=== PATIENT | male | born 1985 | race African-American/Black ===

== ENCOUNTER 2017-05-17 19:55 | Emergency (ER) | payer MEDICAID ==
[~2017-05-17] VITALS: Ht 175.3 cm; Wt 72.7 kg
[~2017-05-17 19:55] MED LIST: NOCURR
[2017-05-17] MEDS ORDERED: PERTUSS(ACELL),DIPH,TET VAC/PF 0.5 ML VIAL IM ONE (21:15)
[2017-05-17 21:18] VITALS: BP 118/77
== END 2017-05-17 21:21 | disposition home or self-care (01) ==
LOC: EMS 19:57
DX: S61.211A Laceration without foreign body of left index finger without damage to nail, initial encounter (principal); S01.81XA Laceration without foreign body of other part of head, initial encounter; F17.210 Nicotine dependence, cigarettes, uncomplicated; F12.90 Cannabis use, unspecified, uncomplicated; W45.8XXA Other foreign body or object entering through skin, initial encounter; Y93.89 Activity, other specified; Y92.89 Other specified places as the place of occurrence of the external cause; Y99.8 Other external cause status
CPT/HCPCS: 90471; 90715; 99283; 99406

== ENCOUNTER 2017-11-09 13:42 | Inpatient (IN) | payer MEDICAID ==
[~2017-11-09] VITALS: Ht 175.3 cm; Wt 70.7 kg
[2017-11-09] MEDS ORDERED: HALOPERIDOL 5 MG TABLET PO PRN (15:00)
[2017-11-09] MEDS ORDERED: ZOLPIDEM TARTRATE 10 MG TABLET PO PRN (15:00)
[2017-11-09] MEDS ORDERED: LORazepam 2 MG TABLET PO PRN (15:00)
[2017-11-09] MEDS ORDERED: LORazepam 2 MG/ML VIAL IM ONE (17:20)
[2017-11-09] MEDS ORDERED: HALOPERIDOL LACTATE 5 MG/ML VIAL IM ONE (17:20)
[2017-11-09] MEDS ORDERED: DiphenhydrAMINE HCL 50 MG/ML VIAL IM ONE (17:20)
[2017-11-09 19:22] LABS: BASOPHILS % (AUTO) 0.3 % (0.0-2.0); EOSINOPHILS % (AUTO) 0.1 % (1.0-6.0); HEMATOCRIT 39.3 % (41-53); HEMOGLOBIN 13.8 g/dL (13.5-17.5); LYMPHOCYTES # (AUTO) 1.4 K/uL (1.0-4.8); LYMPHOCYTES % (AUTO) 12.4 % (22.0-44.0); MEAN CORPUSCULAR HEMOGLOBIN 29.6 pg (26.0-34.0); MEAN CORPUSCULAR HGB CONC 35.1 G/dL (31.0-37.0); MEAN CORPUSCULAR VOLUME 84 fL (80-100); MONOCYTES # (AUTO) 0.8 K/uL (0.1-1.0); NEUTROPHILS % (AUTO) 80.2 % (40.0-70.0); PLATELET COUNT (AUTO) 397 K/uL (150-450); RED BLOOD CELL COUNT(AUTO) 4.67 MIL/uL (4.50-5.90); RED CELL DISTRIBUTION WIDTH 13.5 % (11.5-14.5)
[2017-11-09 19:31] LABS: ANION GAP 9 mmol/L (8-16); CALCIUM, TOTAL 9.3 mg/dL (8.8-10.5); CARBON DIOXIDE 26 mmol/L (22-29); CHLORIDE 106 mmol/L (98-107); CREATININE 1.64 mg/dL (0.60-1.30); GLOMERULAR FILTR. RATE CALC 58 mL/min (>60); GLUCOSE,RANDOM 84 mg/dL (70-110); POTASSIUM 4.2 mmol/L (3.5-5.1); SODIUM SERUM 141 mmol/L (136-145); UREA NITROGEN, BLOOD 25 mg/dL (7-18)
[2017-11-09 19:47] LABS: ALANINE AMINOTRANSFERASE 33 U/L (12-78); ALBUMIN 4.2 g/dL (3.4-5.0); ALKALINE PHOSPHATASE 120 U/L (46-116); ASPARTATE AMINOTRANSFERASE 53 U/L (15-37); BILIRUBIN,TOTAL 0.8 mg/dL (0.1-1.0); CHOL/HDL RATIO 2.1 (4.2-7.3); CHOLESTEROL 141 mg/dL (131-200); FREE T4 (FREE THYROXINE) 1.09 ng/dL (0.76-1.46); HDL CHOLESTEROL 66 mg/dL (40-60); LDL CHOL (CALC.) 72 mg/dL (0-130); THYROID STIMULATING HORMONE 0.68 uIU/mL (0.36-3.74); TOTAL PROTEIN, SERUM 7.5 g/dL (6.4-8.2); TRIGLYCERIDES 15 mg/dL (15-150)
[2017-11-09 21:45] VITALS: BP 109/66
[2017-11-10 08:01] VITALS: BP 110/80
[2017-11-10] MEDS ORDERED: LOPERAMIDE HCL 2 MG CAPSULE PO PRN (09:30)
[2017-11-10] MEDS ORDERED: ACETAMINOPHEN 325 MG TABLET PO PRN (09:30)
[2017-11-10] MEDS ORDERED: BACITRACIN 28.4 GM OINTMENT TP PRN (09:30)
[2017-11-10] MEDS ORDERED: CloNIDine HCL 0.1 MG TABLET PO PRN (09:30)
[2017-11-10] MEDS ORDERED: ALBUTEROL SULFATE HFA 90 MCG/PUFF 8 GM INHALER IH PRN (09:30)
[2017-11-10] MEDS ORDERED: ONDANSETRON HCL 4 MG TABLET PO PRN (09:30)
[2017-11-10] MEDS ORDERED: MAGNESIUM HYDROXIDE SUSPENSION 30 ML UDCUP PO PRN (09:30)
[2017-11-10] MEDS ORDERED: BENZOCAINE/MENTHOL LOZENGE MM PRN (09:30)
[2017-11-10] MEDS ORDERED: IBUPROFEN 600 MG TABLET PO PRN (09:30)
[2017-11-10] MEDS ORDERED: PETROLATUM,WHITE 71 GM JELLY TP PRN (09:30)
[2017-11-10] MEDS ORDERED: MAG HYDROX/AL HYDROX/SIMETH ES 30 ML SUSPENSION UDCUP PO PRN (09:30)
[2017-11-10 16:01] VITALS: BP 129/65
[2017-11-10] MEDS: RisperiDONE 1 MG TABLET PO SCH (21:00)
[2017-11-11 08:05] VITALS: BP 112/61
[2017-11-11 16:15] VITALS: BP 110/67
[2017-11-11] MEDS: RisperiDONE 1 MG TABLET PO SCH (20:35)
[2017-11-12 06:37] VITALS: BP 111/54
[2017-11-12 08:32] VITALS: BP 131/62
[2017-11-12] MEDS ORDERED: RISP1 PO (12:34)
== END 2017-11-12 14:14 | disposition home or self-care (01) | DRG 751 ==
LOC: EMS 13:44 → B3A 20:30
DX: F29 Unspecified psychosis not due to a substance or known physiological condition (principal); N17.9 Acute kidney failure, unspecified; F15.10 Other stimulant abuse, uncomplicated; D72.829 Elevated white blood cell count, unspecified; F41.9 Anxiety disorder, unspecified; F12.10 Cannabis abuse, uncomplicated; F17.210 Nicotine dependence, cigarettes, uncomplicated; G47.00 Insomnia, unspecified; Z59.0 Homelessness; Z78.1 Physical restraint status; Z79.899 Other long term (current) drug therapy; Z71.6 Tobacco abuse counseling; Z71.51 Drug abuse counseling and surveillance of drug abuser
CPT/HCPCS: 84439; 84443; G0480; J1200; J1630; J2060

== ENCOUNTER 2023-02-25 16:03 | Emergency (ER) | payer MEDICAID ==
[~2023-02-25] VITALS: Ht 175.3 cm; Wt 72.7 kg
[~2023-02-25 16:03] MED LIST changes: -NOCURR; +RISP1TAB48 PO
[2023-02-25 16:06] VITALS: BP 104/61; PULSE 81; RESP 18; TEMP 98.7
[2023-02-25] MEDS ORDERED: PROM25SU10 PR (16:07)
== END 2023-02-25 18:35 | disposition left against medical advice (07) ==
LOC: EMS 16:07
DX: R11.2 Nausea with vomiting, unspecified (principal); R10.10 Upper abdominal pain, unspecified; Z53.21 Procedure and treatment not carried out due to patient leaving prior to being seen by health care provider
CPT/HCPCS: 99281; Z7502